=== PATIENT | female | born 1980 | race Caucasian/White ===

== ENCOUNTER 2017-10-27 07:47 | Outpatient (CLI) | payer OTHER ==
--- NOTE | 2017-10-27 12:32 | NM ---
NUCLEAR MEDICINE HEPATOBILIARY SCAN: DATE: 10/27/17. HISTORY: A 37-year-old female with other specified diseases of gallbladder. Postprandial nausea and royer sis. TECHNIQUE: [id number] dose: 5 mCi. Ensure (fatty meal) dose: 8 oz. [id number] injected IV. Dynamic anterior scintigraphy of abdomen for 1 hour. Fatty meal given. Additional dynamic anterior scintigraphy of abdomen. Counts obtained over gallbladder. Time-activity curve generated. FINDINGS: There is normal uptake and washout of radiopharmaceutical agent from the liver. The gallbladder fill s normally. Bowel activity is visualized at an appropriate time. The gallbladder ejection fraction is normal: 66%. IMPRESSION: Normal. gloria [] POS: STEPHANIE
== END 2017-10-27 07:48 | disposition home or self-care (01) ==
LOC: NM 07:47
PROVIDERS: ATTEND Surgery
DX: K82.8 Other specified diseases of gallbladder (principal)
CPT/HCPCS: 78227; A9537

== ENCOUNTER 2017-10-31 10:39 | Outpatient (CLI) | payer OTHER ==
--- NOTE | 2017-10-31 14:27 | NM ---
NUCLEAR MEDICINE BONE SCAN WHOLE BODY: (SKELETAL SCINTIGRAPHY) Date: 10/31/17 HISTORY: 37-year-old female with right breast cancer. TECHNIQUE: IV injection of [id number]: 31.8 mCi 3 hour delayed whole body skeletal scintigraphy in anterior and posterior views. FINDINGS: There are no foci of asymmetrically increased uptake that are particularly suspicious for bone metast ases. IMPRESSION: No compelling evidence of skeletal metastasis. JOY Farah POS: RIC
== END 2017-10-31 10:40 | disposition home or self-care (01) ==
LOC: NM 10:39
PROVIDERS: ATTEND Family Medicine
DX: D05.11 Intraductal carcinoma in situ of right breast (principal)
CPT/HCPCS: 78306; A9503

== ENCOUNTER 2017-11-07 08:39 | Outpatient (CLI) | payer OTHER ==
--- NOTE | 2017-11-07 12:06 | PET ---
PET CT: HISTORY: 37-year-old female with right-sided breast cancer diagnosed in 2011. Status post bilateral mastectomy , breast reconstruction, and bilateral oophorectomy. Exam requested for restaging. COMPARISON: PET CT dated 09/13/14. CORRELATION: Whole body bone scan dated 10/31/17. FINDINGS: There is continued focal increased FDG localization in the anterior aspect of the tongue, which is es sentially unchanged. There is FDG localization in the brown fat of the lower neck. No joe hypermetabolism is seen in the neck, mediastinum, hilar regions, internal mammary, axillary, abdominal or pelvic lymph node stations. No hypermetabolic pulmonary nodules, liver, adrenal, or ske letal lesions are identified. There is physiologic activity in the GI and tracts. The CT scan used for attenuation correction demonstrates no evidence of pleural effusions or ascites. IMPRESSION: No evidence of metastatic disease. POS: STEPHANIE
== END 2017-11-07 08:40 | disposition home or self-care (01) ==
LOC: PET 08:39
PROVIDERS: ATTEND Family Medicine
DX: D05.11 Intraductal carcinoma in situ of right breast (principal)
CPT/HCPCS: 78815; A9552

== ENCOUNTER 2025-06-14 10:08 | Outpatient (CLI) | payer OTHER | END 2025-06-14 10:09 | disposition home or self-care (01) | LOC: SCSRAD 10:08 | PROVIDERS: ATTEND Nurse Practitioner Family | DX: S69.91XA Unspecified injury of right wrist, hand and finger(s), initial encounter (principal) ==